=== PATIENT | female | born 1950 | race Caucasian/White ===

== ENCOUNTER → 2017-02-23 | Outpatient (CLI) | payer OTHER | END | disposition home or self-care (01) | LOC: C.LABMFLN 09:10 | PROVIDERS: ATTEND Family Medicine | DX: R30.0 Dysuria (principal); M54.9 Dorsalgia, unspecified; R35.0 Frequency of micturition; R11.0 Nausea ==

== ENCOUNTER → 2017-03-10 | Outpatient (CLI) | payer OTHER ==
[2017-03-10 13:18] LABS: URINE APPEARANCE CLOUDY (CLEAR); URINE BILIRUBIN NEG (NEG); URINE COLOR YELLOW; URINE EPITHELIAL CELL AUTO >30 /lpf (0-5); URINE NITRITE POS (NEG); URINE SPECIFIC GRAVITY 1.011 (1.000-1.030); UROBILINOGEN NEG (NEG)
[2017-03-10 13:39] LABS: MANUAL MICROSCOPIC REQUIRED? NO; REVIEW REQ? NO
== END | disposition home or self-care (01) ==
LOC: C.LABMFLN 08:54
PROVIDERS: ATTEND Family Medicine
DX: R35.0 Frequency of micturition (principal)

== ENCOUNTER → 2017-10-12 | Outpatient (CLI) | payer OTHER ==
[~2017-10-12] MED LIST: AMOX875T PO; CEFD1CAP14 PO; CEFD250S3 PO; ERGO500037 PO; HYDR25TA4 PO; PRED20TA PO; RANI150T3 PO
[2017-10-12 13:05] LABS: BASO % 0.2 %; BASO ABS # 0.01 K/uL (0-0.2); EOS % 3.4 %; EOS ABS # 0.16 K/uL (0-0.5); HEMATOCRIT 40.6 % (37-47); HEMOGLOBIN 13.7 g/dL (12.0-16.0); IG# 0.02 K/uL (0.00-0.02); LYMPH % 24.9 %; LYMPH ABS # 1.16 K/uL (1.2-3.4); MEAN CELL VOLUME 86.6 fL (80-100); MEAN CORPUSCULAR HEMOGLOBIN 29.2 pg (25-34); MEAN CORPUSCULAR HGB CONC 33.7 g/dl (32-36); MEAN PLATELET VOLUME 8.8 fL (7.4-10.4); MONO % 9.7 %; MONO ABS # 0.45 K/uL (0.11-0.59); NEUT % 61.4 %; NEUT ABS # 2.86 K/uL (1.4-6.5); PLATELET COUNT 182 K/uL (130-400); RED CELL DISTRIBUTION WIDTH CV 13.1 % (11.5-14.5); RED CELL DISTRIBUTION WIDTH SD 41.7 fL (36.4-46.3); WHITE BLOOD COUNT 4.66 K/uL (4.8-10.8)
[2017-10-12 13:55] LABS: ALBUMIN 4.1 gm/dl (3.4-5.0); ALT/SGPT 23 U/L (12-78); BLOOD UREA NITROGEN 18 mg/dl (7-18); CALCIUM 9.1 mg/dl (8.5-10.1); CARBON DIOXIDE 29 mmol/L (21-32); CREATININE 1.01 mg/dl (0.60-1.20); GLUCOSE 103 mg/dl (70-99); POTASSIUM 3.3 mmol/L (3.5-5.1); SODIUM 136 mmol/L (136-145)
[2017-10-12 13:58] LABS: ALKALINE PHOSPHATASE 122 U/L (45-117); AST/SGOT 21 U/L (15-37)
== END | disposition home or self-care (01) ==
LOC: C.LABMFLN 10:13
PROVIDERS: ATTEND Physician Assistant
DX: K21.9 Gastro-esophageal reflux disease without esophagitis (principal); F41.9 Anxiety disorder, unspecified; M81.0 Age-related osteoporosis without current pathological fracture; I10 Essential (primary) hypertension; E55.9 Vitamin D deficiency, unspecified

== ENCOUNTER → 2017-10-13 | Outpatient (CLI) | payer OTHER | END | disposition home or self-care (01) | LOC: C.LABMFLN 11:21 | PROVIDERS: ATTEND Family Medicine | DX: R30.0 Dysuria (principal) ==

== ENCOUNTER → 2017-10-27 | Outpatient (CLI) | payer OTHER | END | disposition home or self-care (01) | LOC: C.LABMFLN 09:52 | PROVIDERS: ATTEND Physician Assistant | DX: N39.0 Urinary tract infection, site not specified (principal) ==

== ENCOUNTER → 2017-11-02 | Outpatient (CLI) | payer OTHER ==
--- NOTE | 2017-11-02 14:37 | MAMMOGRAPHY REPORT ---
BILATERAL DIGITAL DIAGNOSTIC MAMMOGRAM TOMOSYNTHESIS WITH CAD AND TARGETED RIGHT ULTRASOUND: 8 CLINICAL HISTORY: 67-year-old woman presents for mammographic evaluation of both breasts, at time of annual exam. Also, her provider recently palpated lumps in the 5:00 and 11:00 axes of the right derek st on physical exam. The patient was unsure of the location of the lumps in order to point them out during today's workup. TECHNIQUE: Bilateral breast tomosynthesis in addition to standard 2D mammography was performed. Curre nt study was also evaluated with a Computer Aided Detection (CAD) system. COMPARISON: Comparison is made to exams dated: 10/22/2016 mammogram, 05/15/2015 mammogram, 04/05/2014 ma mmogram, 12/26/2012 mammogram, and 06/30/2011 mammogram. BREAST COMPOSITION: There are scattered areas of fibroglandular density in both breasts. FINDINGS: There are scattered benign coarse, round and punctate microcalcifications in the breasts, a nd mild vascular calcification. There is an ovoid focal asymmetry measuring 2 cm in the 3:00 middle one third of the left breast, that appears similar on all available prior mammograms dating back to a t least 06/30/2011, therefore likely benign. A circumscribed 10 mm mass in the upper outer anterior right breast is also stable dating back to at least 2010, also likely benign. No new suspicious mass , architectural distortion or cluster of suspicious microcalcifications is seen bilaterally. Targeted ultrasound was performed in the right breast with particular attention to the 5:00 and 11:00 axes, in the areas of palpable concern described by the patient's provider. A morphologically rusty l lymph node is identified in the right axilla. In the 10:00, 11:00 and 12:00 axes as well as 4:00, 5:00 and 6:00 axes of the right breast, sonographically normal tissue is seen without a suspicious so lid or cystic mass. IMPRESSION: ACR BI-RADS CATEGORY 2: BENIGN, TARGETED ULTRASOUND ACR BI-RADS CATEGORY 2: BENIGN 1. Stable bilateral mammograms, without mammographic evidence of malignancy. 2. No new suspicious mammographic or targeted sonographic abnormality with particular attention to t he right breast 5:00 and 11:00 axes in the areas of lumps identified by the patient's provider. Ther efore, clinical follow-up is recommended, as biopsy of a clinically suspicious mass should not be pre cluded by negative imaging. Otherwise, recommend routine screening tomosynthesis mammography in one year. Approximately 10% of breast cancers are not detected with mammography. A negative mammographic report should not delay biopsy if a clinically suggestive mass is present. Sarika Smith M.D. ay/:11/02/2017 12:39:08 Invas Tech: Lzia VILLA(R)(M), [facility] letter sent: Normal 1/2 BI-RADS Code: ACR BI-RADS Category 2: Benign Ultrasound BI-RADS: ACR BI-RADS Category 2: Benign
== END | disposition home or self-care (01) ==
LOC: C.MAMM 10:42
PROVIDERS: ATTEND Physician Assistant
DX: N63.14 Unspecified lump in the right breast, lower inner quadrant (principal); N63.11 Unspecified lump in the right breast, upper outer quadrant

== ENCOUNTER 2017-11-21 08:50 | Emergency (ER) | payer OTHER ==
[~2017-11-21] VITALS: Ht 170.2 cm; Wt 111.2 kg
[2017-11-21 08:57] VITALS: Ht 170.2 cm; Wt 111.2 kg
[2017-11-21] MEDS ORDERED: SODIUM CHLORIDE 0.9% 1000ML 1,000 ML IV STA (09:55)
[2017-11-21] MEDS ORDERED: OPTIRAY 320 IV PRN (10:15)
[2017-11-21 10:22] LABS: BASO % 0.3 %; BASO ABS # 0.01 K/uL (0-0.2); EOS ABS # 0.08 K/uL (0-0.5); HEMATOCRIT 40.8 % (37-47); HEMOGLOBIN 13.6 g/dL (12.0-16.0); IG# 0.01 K/uL (0.00-0.02); LYMPH % 25.6 %; LYMPH ABS # 1.01 K/uL (1.2-3.4); MEAN CORPUSCULAR HGB CONC 33.3 g/dl (32-36); MEAN PLATELET VOLUME 8.6 fL (7.4-10.4); MONO % 9.4 %; MONO ABS # 0.37 K/uL (0.11-0.59); NEUT % 62.4 %; NEUT ABS # 2.47 K/uL (1.4-6.5); PLATELET COUNT 140 K/uL (130-400); RED CELL DISTRIBUTION WIDTH CV 13.2 % (11.5-14.5); RED CELL DISTRIBUTION WIDTH SD 42.2 fL (36.4-46.3); WHITE BLOOD COUNT 3.95 K/uL (4.8-10.8)
[2017-11-21] MEDS ORDERED: HYDR25TA4 PO (10:30)
[2017-11-21] MEDS ORDERED: RANI150T3 PO (10:30)
[2017-11-21] MEDS ORDERED: ERGO500037 PO (10:30)
[2017-11-21 10:38] LABS: ALBUMIN 3.6 gm/dl (3.4-5.0); CALCIUM 9.3 mg/dl (8.5-10.1); CREATININE 0.93 mg/dl (0.60-1.20)
[2017-11-21 10:41] LABS: TOTAL PROTEIN 7.4 gm/dl (6.4-8.2)
--- NOTE | 2017-11-21 11:30 | DIAGNOSTIC IMAGING REPORT ---
ABD/PELVIS IV CONTRAST ONLY CT DOSE: 1192.47 mGy.cm HISTORY: Pain. Nausea. RECURRENT UTIS TECHNIQUE: Multiaxial CT images of the abdomen and pelvis were performed following the use of intravenous contrast. A dose lowering technique was utilized adhering to the principles of ALARA. COMPARISON STUDY: None. FINDINGS: Minimal deep ended basilar atelectasis. Prior cholecystectomy. Liver spleen and pancreas are unremarkable. Bilateral extrarenal pelves with the kidneys enhance uniformly. 8 mm upper pole left renal cyst. Minimal hyperplastic changes adrenal glands. Unremarkable bowel pattern. No evidence for obstructive change. Several scattered diverticuli of the sigmoid colon. No evidence for acute diverticulitis. Total right hip arthroplasty. IMPRESSION: 1. Mild fatty infiltration of liver. 2. Small left renal cyst. 3. Otherwise negative study post cholecystectomy. The above report was generated using voice recognition software. It may contain grammatical, syntax or spelling errors. Electronically signed by: Justus Fletcher M.D. 11/21/2017 11:29 AM Dictated Date/Time: 11/21/2017 11:26 AM
[2017-11-21] MEDS ORDERED: ONDANSETRON INJ 2 MG/ML 2 ML VIAL IV STA (11:33)
[2017-11-21] MEDS ORDERED: MoRPHine SULFATE 4 MG/ML 1 ML CARP\\VIAL IV STA (11:33)
[2017-11-21] MEDS ORDERED: CEFTRIAXONE SOD INJ 1 GM ADDVIAL IV STA (11:43)
[2017-11-21 11:50] VITALS: O2SAT 100
[2017-11-21] MEDS ORDERED: CEFD250S3 PO (13:51)
--- NOTE | 2017-11-21 13:52 | EMERGENCY ROOM VISIT NOTE ---
History First contact with patient: 09:20 Chief Complaint: URINARY SYMPTOMS Stated Complaint: UTI Nursing Triage Summary: Burning/pain with urination, pain in right lower back, burning in lower abdomen , nausea, & urinary frequency. Denies vomiting, diarrhea, hematuria, or constipation. History of Present Illness Patient is a 67-year-old white female who presents to the emergency department for pelvic pain and UTI symptoms. Patient reports that she has had symptoms for the last couple days. She reports that this would be her third urinary tract infection since beginning of this year. She was seen by her primary care provider twice, and was on 2 different courses of Macrobid in October, she has been off antibiotics for at least a week. She reports she took the antibiotics as prescribed. She reports only short-term relief while on the antibiotics and after being off of them for a few days her symptoms returned. Patient reports feeling heaviness in her bladder, lower pelvic burning, urinary frequency, decreased urinary output. She denies any burning with urination or dysuria. She does feel like she can empty her bladder completely. She has begun to experience some pain that is wrapping around to her back. She has not had any fevers. She is postmenopausal, denies any vaginal discharge or vaginal bleeding. She has been nauseous and anorexic, but denies vomiting. Patient denies a prior history frequent UTIs prior to this. Bowel movements have been normal. She denies any diarrhea or constipation. She presently rates her discomfort a 5/10. Review of Systems Review of systems as per HPI. All other systems reviewed were negative. 10 systems reviewed. Past Medical/Surgical History Medical Problems: (1) Anxiety Disorder, Unspecified (2) Essential (Primary) Hypertension (3) Gastro-Esophageal Reflux Disease Without Esophagitis (4) Vitamin D Deficiency, Unspecified Surgical Problems: (1) History of cholecystectomy (2) History of total hip replacement Electronic medical records are reviewed and summarized as above/below. See Problem List. Social History Smoking Status: Never Smoker Alcohol Use: none Marital Status: Housing Status: lives with significant other Occupation Status: retired Current/Historical Medications Scheduled Cefdinir (Omnicef), 6 ML PO BID Ergocalciferol (Vitamin D 75411 Unit), 50,000 UNIT PO Q2WK Hydrochlorothiazide (Hctz), 25 MG PO DAILY Ranitidine Hcl (Zantac), 150 MG PO BID Physical Exam Vital Signs Date Time Temp Pulse Resp B/P (MAP) Pulse Ox O2 Delivery O2 Flow Rate FiO2 11/21/17 14:46 37.2 76 16 131/74 100 11/21/17 13:35 65 20 112/70 95 Room Air 11/21/17 12:12 68 18 126/74 100 Room Air 11/21/17 12:05 58 11/21/17 11:50 100 Room Air 11/21/17 11:40 72 20 150/76 99 Room Air 11/21/17 10:36 74 18 159/96 99 Room Air 11/21/17 08:57 36.8 100 18 161/85 100 Room Air Physical Exam CONSTITUTIONAL: Patient is a well appearing, occasionally tearful and slightly anxious 67-year-old white female who is awake and alert and in no acute distress. EYES: Pupils equal, round, reactive to light and accommodation. EOMs intact without nystagmus. Sclera are anicteric. ENT: Tympanic membranes intact, with normal landmarks. External canals are clear. Oral and nasopharynx are clear. Mucous membranes are moist, no lesions , tongue and gums appear normal. CARDIOVASCULAR: Regular rate and rhythm, with normal S1 and S2, no murmur or gallop or rub is heard. No carotid bruits auscultated. No JVD. Peripheral pulses easily palpable. RESPIRATORY: Breath sounds equal and clear to auscultation without wheezes, rales, or rhonchi heard. Full and equal chest expansion without accessory muscle use or retractions. ABDOMEN: Bowel sounds are present. Well-healed surgical scars are noted. Abdomen is soft, mildly tender throughout the lower abdomen, without guarding, rebound or rigidity. No organomegaly, no pulsatile masses. INTEGUMENTARY: No lesions or rash, normal skin turgor. LYMPH: No lymphadenopathy. Medical Decision & Procedures ER Provider Diagnostic Interpretation: ABD/PELVIS IV CONTRAST ONLY CT DOSE: 1192.47 mGy.cm HISTORY: Pain. Nausea. RECURRENT UTIS TECHNIQUE: Multiaxial CT images of the abdomen and pelvis were performed following the use of intravenous contrast. A dose lowering technique was utilized adhering to the principles of ALARA. COMPARISON STUDY: None. FINDINGS: Minimal deep ended basilar atelectasis. Prior cholecystectomy. Liver spleen and pancreas are unremarkable. Bilateral extrarenal pelves with the kidneys enhance uniformly. 8 mm upper pole left renal cyst. Minimal hyperplastic changes adrenal glands. Unremarkable bowel pattern. No evidence for obstructive change. Several scattered diverticuli of the sigmoid colon. No evidence for acute diverticulitis. Total right hip arthroplasty. IMPRESSION: 1. Mild fatty infiltration of liver. 2. Small left renal cyst. 3. Otherwise negative study post cholecystectomy. Laboratory Results 11/21/17 10:05 Red Blood Count 4.69, Mean Corpuscular Volume 87.0, Mean Corpuscular Hemoglobin 29.0, Mean Corpuscular Hemoglobin Concent 33.3, Mean Platelet Volume 8.6, Neutrophils (%) (Auto) 62.4, Lymphocytes (%) (Auto) 25.6, Monocytes (%) (Auto) 9.4, Eosinophils (%) (Auto) 2.0, Basophils (%) (Auto) 0.3, Neutrophils # (Auto) 2.47, Lymphocytes # (Auto) 1.01, Monocytes # (Auto) 0.37, Eosinophils # (Auto) 0.08, Basophils # (Auto) 0.01 11/21/17 10:05 Test 11/21/17 09:13 11/21/17 10:05 Urine Color YELLOW Urine Appearance CLOUDY (CLEAR) Urine pH 8.0 (4.5-7.5) Urine Specific [place] 1.010 (1.000-1.030) Urine Protein NEG (NEG) Urine Glucose (UA) NEG (NEG) Urine Ketones NEG (NEG) Urine Occult Blood TRACE (NEG) Urine Nitrite POS (NEG) Urine Bilirubin NEG (NEG) Urine Urobilinogen NEG (NEG) Urine Leukocyte Esterase MODERATE (NEG) Urine RBC 0-4 /hpf (0-4) Urine WBC >30 /hpf (0-5) Urine Epithelial Cells >30 /lpf (0-5) Urine Bacteria 4+ (NEG) White Blood Count 3.95 K/uL (4.8-10.8) Red Blood Count 4.69 M/uL (4.2-5.4) Hemoglobin 13.6 g/dL (12.0-16.0) Hematocrit 40.8 % (37-47) Mean Corpuscular Volume 87.0 fL (80-100) Mean Corpuscular Hemoglobin 29.0 pg (25-34) Mean Corpuscular Hemoglobin Concent 33.3 g/dl (32-36) Platelet Count 140 K/uL (130-400) Mean Platelet Volume 8.6 fL (7.4-10.4) Neutrophils (%) (Auto) 62.4 % Lymphocytes (%) (Auto) 25.6 % Monocytes (%) (Auto) 9.4 % Eosinophils (%) (Auto) 2.0 % Basophils (%) (Auto) 0.3 % Neutrophils # (Auto) 2.47 K/uL (1.4-6.5) Lymphocytes # (Auto) 1.01 K/uL (1.2-3.4) Monocytes # (Auto) 0.37 K/uL (0.11-0.59) Eosinophils # (Auto) 0.08 K/uL (0-0.5) Basophils # (Auto) 0.01 K/uL (0-0.2) RDW Standard Deviation 42.2 fL (36.4-46.3) RDW Coefficient of Variation 13.2 % (11.5-14.5) Immature Granulocyte % (Auto) 0.3 % Immature Granulocyte # (Auto) 0.01 K/uL (0.00-0.02) Anion Gap 7.0 mmol/L (3-11) Est Creatinine Clear Calc Drug Dose 75.5 ml/min Estimated GFR () 73.7 Estimated GFR (Non- 63.6 BUN/Creatinine Ratio 9.1 (10-20) Calcium Level 9.3 mg/dl (8.5-10.1) Total Bilirubin 0.5 mg/dl (0.2-1) Aspartate Amino Transf (AST/SGOT) 12 U/L (15-37) Alanine Aminotransferase (ALT/SGPT) 17 U/L (12-78) Alkaline Phosphatase 97 U/L (45-117) Total Protein 7.4 gm/dl (6.4-8.2) Albumin 3.6 gm/dl (3.4-5.0) Globulin 3.8 gm/dl (2.5-4.0) Albumin/Globulin Ratio 1.0 (0.9-2) Medications Administered Medications (Trade) Dose Ordered Sig/Issa Route Start Time Stop Time Status Last Admin Dose Admin Sodium Chloride 1,000 ml @ 999 mls/hr Q1H1M STAT IV 11/21/17 09:55 11/21/17 10:55 DC 11/21/17 10:14 999 MLS/HR Morphine Sulfate (MoRPHine SULFATE INJ) 4 mg NOW STAT IV 11/21/17 11:33 11/21/17 11:35 DC 11/21/17 11:40 4 MG Ondansetron HCl (Zofran Inj) 4 mg NOW STAT IV 11/21/17 11:33 11/21/17 11:35 DC 11/21/17 11:39 4 MG Ceftriaxone Sodium (Rocephin Inj) 1 gm NOW STAT IV 11/21/17 11:43 11/21/17 11:45 DC 11/21/17 11:53 1 GM ED Course The patient was seen and evaluated as above. Her old records were reviewed, including her 2 prior urine cultures from October 13 which grew a hand sensitive Klebsiella pneumoniae and an Escherichia coli resistant only to ampicillin and ampicillin/sulbactam. Second urine culture from 10/27 again grew a pansensitive Klebsiella. She presents the emergency department for ongoing urinary tract symptoms, now with associated lower abdominal and back pain. IV lock initiated. Laboratory studies including CBC and CMP were collected. Urinalysis and urine microscopy were also performed. She was hydrated with a liter of normal saline solution over 1 hour. She initially declined medication for discomfort. Given her persistent UTI symptoms, CT scan of the abdomen and pelvis with IV contrast was ordered. Laboratory studies noted a white count of 3900, no left shift or bandemia. Electrolytes are within normal limits. Renal functions are elevated. Creatinine clearance is normal. LFTs are unremarkable. Urine microscopy today notes trace occult blood, positive nitrates, moderate leukocyte esterase greater than 30 WBCs and epithelial cells with 4+ bacteria. Urine culture is pending. CT scan of the abdomen and pelvis with IV contrast was essentially unremarkable. Postsurgical changes consistent with cholecystectomy were noted. There is mild fatty infiltration of the liver and a small left renal cyst, bilateral extrarenal pelves with the kidneys enhance uniformly. The patient did request something for discomfort when she returned from scan and was given morphine 4 mg and Zofran 4 mg IV. All laboratory and diagnostic imaging studies were reviewed with attending physician, who also independently evaluated the patient. Workup was also reviewed with the patient and her at length. She has several antibiotic allergies/intolerances, she appears to have a questionable intolerance to cephalosporins, and after discussion with Dr. Mccain, we have elected to proceed with IV ceftriaxone to cover for her persistent urinary tract infection. She was monitored on the court monitor and observed closely while given 1 g of ceftriaxone IV, without adverse reaction. Prolonged monitoring after IV antibiotics did not demonstrate any allergic reaction. The patient will be placed on Omnicef, pending urine culture. After discussion with the patient, she would like to try the antibiotic in a liquid form to avoid any difficulty swallowing which she has had with some pills in the past. Differential diagnoses entertained included persistent/recurrent UTI, pyelonephritis, kidney stone, mass or malignancy, obstructive uropathy, among others. The patient was discharged home with her in good condition. She was encouraged to follow closely with her primary care provider this week for recheck, particularly after the urine culture results. The patient felt much improved and reassured at discharge, rated her discomfort a 1/10 at that time. Vital signs were stable. Medical Decision See Emergency Department course. [place] Drug Monitoring Program Search Results: patient reviewed within database Medication Reconcilliation Current Medication List: was personally reviewed by ms Blood Pressure Screening Patient's blood pressure: Normal blood pressure Blood pressure disposition: Did not require urgent referral Impression Primary Impression: Complicated urinary tract infection Departure Information Prescriptions Cefdinir (OMNICEF) 250 Mg/5 Ml Ailyn 6 ML PO BID for 10 Days, #120 ML Prov: Elena Cee PA 11/21/17 Referrals Sherrell Lindquist (PCP) Patient Instructions My [facility] Additional Instructions Cefdinir (Omnicef) 250mg/5mL : Take 6 mL twice daily for 10 days for your urine infection. All antibiotics can cause diarrhea. If this occurs and you feel worse or it does not resolve in 1-2 days follow up with your doctor or return to the Emergency Department as this could be signs of serious underlying problems. Any medication can cause an allergic reaction, stop the pills immediately and return to the ER for rash, hives, breathing difficulties, or swelling. Ibuprofen(Motrin, Advil) may be used for fever or pain. Use 600mg every six hours as needed. Take with food. Avoid using more than 2400mg in a 24 hour period. Do not use 2400mg per day for more than three consecutive days without physician direction. Prolonged inappropriate use can lead to stomach upset or ulcers. This is available over the counter and typically comes in 200mg tablets. (AND/OR) Acetaminophen(Tylenol) may be used for fever or pain. Use 1000mg every eight hours as needed. Avoid using more than 3000mg in a 24 hour period. This is available over the counter. Read all the package inserts or medication information paperwork provided. If you have any questions or concerns call your primary provider, pharmacist or the ER for assistance. Rest and drink plenty of fluids. Continue current medications. Return to the ER immediately for worsening or persistent abdominal pain, vomiting, fevers, back or flank pain, worsening of your condition, or as needed. Follow up with your primary physician within 2-3 days for a recheck of the current condition.
[2017-11-21 14:46] VITALS: BP 131/74; PULSE 76; TEMP 37.2; O2SAT 100
--- NOTE | 2017-11-21 16:13 | EMERGENCY ROOM VISIT NOTE ---
ED Visit Note First contact with patient: 09:20 I have personally seen and evaluated the patient with the PA. I agree with the diagnosis and management decisions and have been personally involved in the case. Please see Monique Cee PA-C's notes for further details of the history , physical and visit.
--- NOTE | 2017-11-23 12:02 | Pharmacy Progress Note ---
ED Pharmacist Progress Note Date of Service: Nov 23, 2017. Patient was sent home with a prescription for Cefdinir suspension 300mg PO BID x 10 days for complicated UTI, which should cover the klebsiella pn growing from the patient's URINE culture.
== END 2017-11-21 14:45 | disposition home or self-care (01) ==
LOC: C.EDB 08:51 → C.EDA 14:45
DX: N39.0 Urinary tract infection, site not specified (principal); I10 Essential (primary) hypertension; K21.9 Gastro-esophageal reflux disease without esophagitis; E55.9 Vitamin D deficiency, unspecified; Z88.1 Allergy status to other antibiotic agents

== ENCOUNTER 2017-12-15 08:43 | Emergency (ER) | payer OTHER ==
[~2017-12-15] VITALS: Ht 170.2 cm; Wt 110.9 kg
[~2017-12-15 08:43] MED LIST changes: -AMOX875T PO; -CEFD1CAP14 PO; -CEFD250S3 PO; -PRED20TA PO
[2017-12-15 08:45] VITALS: Ht 170.2 cm; Wt 110.9 kg
[2017-12-15 08:56] VITALS: TEMP 36.8
[2017-12-15] MEDS ORDERED: CEFDINIR 300 MG CAP PO STA (09:18)
[2017-12-15] MEDS ORDERED: CEFD1CAP14 PO (09:29)
--- NOTE | 2017-12-15 09:30 | EMERGENCY ROOM VISIT NOTE ---
History Report prepared by Jaden: Valentine Regan Under the Supervision of: Dr. Jose Alfredo Tabor D.O. First contact with patient: 08:57 Chief Complaint: URINARY SYMPTOMS Stated Complaint: UTI BURNING, PAIN Nursing Triage Summary: uti symptoms started 2 days ago History of Present Illness The patient is a 67 year old female who presents to the Emergency Room with complaints of worsening urinary symptoms for the past 2 days. She reports dysuria and describes burning pain with urination. She is also experiencing bladder spasms and increased urinary frequency. She denies fevers, chills, nausea, vomiting, and flank pain. The patient states that she has been having frequent, recurrent UTIs for the past 8 months. She has been following up with her PCP and has been taking antibiotics. She has not followed up with urology. The patient rates her current pain as a 4/10 in severity. 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 Review of Systems See HPI for pertinent positives & negatives. A total of 10 systems reviewed and were otherwise negative. Past Medical & Surgical Medical Problems: (1) Anxiety Disorder, Unspecified (2) Essential (Primary) Hypertension (3) Gastro-Esophageal Reflux Disease Without Esophagitis (4) Vitamin D Deficiency, Unspecified Surgical Problems: (1) History of cholecystectomy (2) History of total hip replacement Family History Hypertension Social History Smoking Status: Never Smoker Alcohol Use: none Marital Status: Housing Status: lives with significant other Occupation Status: retired Current/Historical Medications Scheduled Cefdinir (Omnicef), 300 MG PO Q12H Hydrochlorothiazide (Hctz), 25 MG PO DAILY Ranitidine Hcl (Zantac), 150 MG PO BID Allergies Coded Allergies: Cefprozil (Verified Allergy, Unknown, flushing of face,itchy palms, 12/15/17 ) Ciprofloxacin (Verified Allergy, Unknown, ? palpitations, 12/15/17) Sulfa Antibiotics (Verified Allergy, Unknown, angioedema, 12/15/17) Physical Exam Vital Signs Date Time Temp Pulse Resp B/P (MAP) Pulse Ox O2 Delivery O2 Flow Rate FiO2 12/15/17 08:56 36.8 94 18 163/105 98 Room Air 12/15/17 08:45 Room Air Physical Exam CONSTITUTIONAL/VITAL SIGNS: Reviewed / noted above. GENERAL: Non-toxic in appearance. INTEGUMENTARY: Warm, dry, and [place]. HEAD: Normocephalic. EYES: without scleral icterus or trauma. ENT/OROPHARYNX: clear and moist. LYMPHADENOPATHY/NECK: Is supple without lymphadenopathy or meningismus. RESPIRATORY: Lungs clear and equal. CARDIOVASCULAR: Regular rate and rhythm. GI/ABDOMEN: Soft and nontender. No organomegaly or pulsatile mass. No rebound or guarding. Normal bowel sounds. EXTREMITIES: Warm and well perfused. BACK: No CVA tenderness. NEUROLOGICAL: Intact without focal deficits. PSYCHIATRIC: normal affect. MUSCULOSKELETAL: Normally developed with good muscle tone. Medical Decision & Procedures Laboratory Results Test 12/15/17 08:55 Urine Color YELLOW Urine Appearance CLOUDY (CLEAR) Urine pH 7.0 (4.5-7.5) Urine Specific [place] 1.012 (1.000-1.030) Urine Protein NEG (NEG) Urine Glucose (UA) NEG (NEG) Urine Ketones NEG (NEG) Urine Occult Blood TRACE (NEG) Urine Nitrite POS (NEG) Urine Bilirubin NEG (NEG) Urine Urobilinogen NEG (NEG) Urine Leukocyte Esterase TRACE (NEG) Urine WBC (Auto) 1-5 /hpf (0-5) Urine RBC (Auto) 0-4 /hpf (0-4) Urine Hyaline Casts (Auto) 1-5 /lpf (0-5) Urine Epithelial Cells (Auto) >30 /lpf (0-5) Urine Bacteria (Auto) 4+ (NEG) Laboratory results as stated above per my review. Medications Administered Medications (Trade) Dose Ordered Sig/Issa Route Start Time Stop Time Status Last Admin Dose Admin Cefdinir (Omnicef Cap) 300 mg ONE STAT PO 12/15/17 09:18 12/15/17 09:19 DC 12/15/17 09:46 300 MG ED Course 0857: Previous medical records were reviewed. The patient was evaluated in room B9. A complete history and physical examination was performed. At this time I discussed the results and treatment plan with the patient. I answered all pertaining questions that she had. She expressed understanding and verbalized agreement. The patient will be discharged home. 0918: Cefdinir 300 mg PO Medical Decision Differential considered: UTI, kidney stone, cystitis. This is a 67-year-old female who presents to the ED with a chief complaint of urinary symptoms. She reports primarily a burning sensation and a slight spasm in her bladder area occasionally. She reports a bladder infection that felt similar month ago. I did review the results of the cultures. It was sensitive to everything at that time. The patient did provide a urine sample today, it reveals findings suggestive of UTI. Culture has been sent. The patient denies any flank pain, nausea, vomiting or fevers. She will be discharged on Omnicef. The patient is to follow-up with urology for further evaluation. She reports recurrent issues with UTIs. Medication Reconcilliation Current Medication List: was personally reviewed by me Blood Pressure Screening Patient's blood pressure: Elevated blood pressure Blood pressure disposition: Referred to PCP Impression Primary Impression: Urinary tract infection Scribe Attestation The scribe's documentation has been prepared under my direction and personally reviewed by me in its entirety. I confirm that the note above accurately reflects all work, treatment, procedures, and medical decision making performed by me. Departure Information Dispostion Home / Self-Care Prescriptions Cefdinir (Omnicef) 300 Mg Cap 300 MG PO Q12H for 7 Days, #14 CAP Prov: Jose Alfredo Tabor D.O. 12/15/17 Referrals Sherrell Lindquist (PCP) Sherrell Estevez MD Patient Instructions My [facility] Additional Instructions Omnicef as prescribed for UTI. Culture should be available in 2 days. He will be contacted if the culture is not sensitive to Omnicef. Follow-up with Dr. Estevez from urology. Call today for an appointment.
[2017-12-15 10:03] VITALS: BP 159/92; PULSE 92; O2SAT 99
[2017-12-15] MEDS ORDERED: PRED20TA PO (12:49)
[2017-12-15] MEDS ORDERED: AMOX875T PO (12:49)
--- NOTE | 2017-12-17 13:39 | Pharmacy Progress Note ---
ED Pharmacist Culture FollowUp Date of Service: Dec 17, 2017. Patient was sent home with a prescription for omnicef 300mg BID X 7 days, which should cover the klebsiella pneumoniae growing from the patient's urine culture.
== END 2017-12-15 10:04 | disposition home or self-care (01) ==
LOC: C.EDB 08:44
DX: N39.0 Urinary tract infection, site not specified (principal); I10 Essential (primary) hypertension; K21.9 Gastro-esophageal reflux disease without esophagitis; Z90.49 Acquired absence of other specified parts of digestive tract; Z96.649 Presence of unspecified artificial hip joint; Z86.59 Personal history of other mental and behavioral disorders; Z82.49 Family history of ischemic heart disease and other diseases of the circulatory system; Z88.1 Allergy status to other antibiotic agents; Z88.2 Allergy status to sulfonamides

== ENCOUNTER 2017-12-15 10:28 | Emergency (ER) | payer OTHER ==
[~2017-12-15 10:28] MED LIST changes: +CEFD1CAP14 PO
[2017-12-15] MEDS ORDERED: DiphenhydrAMINE HCL 50 MG/ML VIAL IV STA (10:36)
[2017-12-15] MEDS ORDERED: RANITIDINE HCL 50 MG/100 ML D5W IV STA (10:36)
[2017-12-15] MEDS ORDERED: METHYLPREDNISOLONE 125 MG VIAL IV STA (10:36)
[2017-12-15] MEDS ORDERED: AMPICILLIN/SULBACTAM SOD INJ 3,000 MG in SODIUM CHLORIDE 0.9% 100ML 100 ML IV STA (10:43)
[2017-12-15] MEDS ORDERED: AMOX875T PO (12:49)
[2017-12-15] MEDS ORDERED: PRED20TA PO (12:49)
--- NOTE | 2017-12-15 12:49 | EMERGENCY ROOM VISIT NOTE ---
History Report prepared by Jaden: Valentine Regan Under the Supervision of: Dr. Jose Alfredo Tabor D.O. First contact with patient: 10:35 Chief Complaint: ALLERGIC REACTION Stated Complaint: ALLERGIC REACTION Nursing Triage Summary: patient was just treated in the emergency room a few mins ago was given antibiotics for uti. on her way home she started to get itchy and red. tongue is bright red in color. patient feels short of breath. patient taken immediately to room b06 dr prater aware. 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 The patient was seen in the ED earlier this morning for urinary symptoms. She was diagnosed with a UTI. She had been prescribed Omnicef for her previous UTI and was able to finish the course without any issues. The patient was prescribed Omnicef for her UTI earlier today. She was given the first dose of the medication in the ED and then discharged. She states about 20 minutes later she started to have a reaction to the medication. The patient developed a diffuse red rash over her body and states that she feels very itchy. She reports some shortness of breath. 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 A total of 10 systems reviewed and were otherwise negative. Past Medical & Surgical Medical Problems: (1) Anxiety Disorder, Unspecified (2) Essential (Primary) Hypertension (3) Gastro-Esophageal Reflux Disease Without Esophagitis (4) Vitamin D Deficiency, Unspecified Surgical Problems: (1) History of cholecystectomy (2) History of total hip replacement Family History Hypertension Social History Smoking Status: Never Smoker Alcohol Use: none Marital Status: Housing Status: lives with significant other Occupation Status: retired Current/Historical Medications Scheduled Amoxicillin & Pot Clavulanate (Augmentin 875-125 mg), 875 MG PO BID Cefdinir (Omnicef), 300 MG PO Q12H Hydrochlorothiazide (Hctz), 25 MG PO DAILY Prednisone (Prednisone), 2 TAB PO DAILY Ranitidine Hcl (Zantac), 150 MG PO BID Allergies Coded Allergies: Cefprozil (Verified Allergy, Unknown, flushing of face,itchy palms, 12/15/17 ) Ciprofloxacin (Verified Allergy, Unknown, ? palpitations, 12/15/17) Sulfa Antibiotics (Verified Allergy, Unknown, angioedema, 12/15/17) Physical Exam Vital Signs Date Time Temp Pulse Resp B/P (MAP) Pulse Ox O2 Delivery O2 Flow Rate FiO2 12/15/17 11:15 68 16 131/73 99 Room Air 12/15/17 10:58 88 12/15/17 10:56 95 18 147/86 99 Room Air 12/15/17 10:37 Room Air 12/15/17 10:32 134 18 114/76 97 Room Air Physical Exam CONSTITUTIONAL/VITAL SIGNS: Reviewed / noted above. GENERAL: Non-toxic in appearance. INTEGUMENTARY: Diffuse erythema of the skin with pruritus. HEAD: Normocephalic. EYES: without scleral icterus or trauma. ENT/OROPHARYNX: clear and moist. LYMPHADENOPATHY/NECK: Is supple without lymphadenopathy or meningismus. RESPIRATORY: Lungs clear and equal. CARDIOVASCULAR: Regular rate and rhythm. GI/ABDOMEN: Soft and nontender. No organomegaly or pulsatile mass. No rebound or guarding. Normal bowel sounds. EXTREMITIES: Warm and well perfused. BACK: No CVA tenderness. NEUROLOGICAL: Intact without focal deficits. PSYCHIATRIC: normal affect. MUSCULOSKELETAL: Normally developed with good muscle tone. Medical Decision & Procedures Medications Administered Medications (Trade) Dose Ordered Sig/Issa Route Start Time Stop Time Status Last Admin Dose Admin Ranitidine HCl (zANTac IV) 50 mg NOW STAT IV 12/15/17 10:36 12/15/17 10:38 DC 12/15/17 10:50 50 MG Methylprednisolone Sodium Succinate (Solu-Medrol IV) 125 mg NOW STAT IV 12/15/17 10:36 12/15/17 10:38 DC 12/15/17 10:50 125 MG Diphenhydramine HCl (Benadryl Inj) 25 mg NOW STAT IV 12/15/17 10:36 12/15/17 10:38 DC 12/15/17 10:51 25 MG Ampicillin Sodium/ Sulbactam Sodium 3000 mg/Sodium Chloride 108 ml @ 200 mls/hr NOW STAT IV 12/15/17 10:43 12/15/17 11:15 DC 12/15/17 11:24 200 MLS/HR ED Course 1035: Previous medical records were reviewed. The patient was evaluated in room B6. A complete history and physical examination was performed. 1036: Benadryl 25 mg IV, Solu-Medrol 125 mg IV, Zantac 50 mg IV 1043: Ampicillin Sodium/Sulbactam Sodium 3000 mg /Sodium Chloride 108 ml @ 200 mls/hr IV 1250: I reassessed the patient at this time. She is feeling better and resting comfortably. I discussed the results and treatment plan with the patient. I answered all pertaining questions that she had. She expressed understanding and verbalized agreement. The patient will be discharged home. Medical Decision Differential diagnosis: Etiologies such as allergic reaction, anaphylaxis, urticaria, Espinoza-Sebastian syndrome, toxic epidermal necrolysis, erythema multiforme, cellulitis, as well as others were entertained. This is a 67-year-old female who presents to the ED with chief complaint of allergic reaction. The patient was seen here about 1 hour ago. She was treated with Omnicef for a UTI. She has had this once before in November without any issues. The patient developed redness of her skin and itchiness about 20-30 minutes after she was discharged. She came back for evaluation. She denies any shortness of breath. Her exam revealed the skin changes but nothing to suggest any pulmonary mucous membrane changes. Her vital signs are stable. She was treated with IV Benadryl, IV Solu-Medrol as well as IV Zantac. She was given IV Unasyn for her UTI. The patient will be discharged on Augmentin. She states that she has had this in the past without problem. Prescription for prednisone also sent. Medication Reconcilliation Current Medication List: was personally reviewed by me Blood Pressure Screening Patient's blood pressure: Normal blood pressure Impression Primary Impression: Allergic reaction Scribe Attestation The scribe's documentation has been prepared under my direction and personally reviewed by me in its entirety. I confirm that the note above accurately reflects all work, treatment, procedures, and medical decision making performed by me. Departure Information Dispostion Home / Self-Care Prescriptions Prednisone (Prednisone) 20 Mg Tab 2 TAB PO DAILY for 4 Days, #8 TAB Prov: Jose Alfredo Tabor D.O. 12/15/17 Amoxicillin & Pot Clavulanate (Augmentin 875-125 mg) 1 Tab Tab 875 MG PO BID, #14 TAB Prov: Jose Alfredo Tabor D.O. 12/15/17 Referrals Linda Clark M.D. (PCP) Patient Instructions My [facility] Additional Instructions Augmentin as prescribed. Prednisone as prescribed. Take Benadryl 25 mg every 6 hours for the next several days. Follow-up with the urologist as per prior instructions. Follow-up with your doctor for further care and evaluation in 1-2 days. Return to the emergency department for worsening or new symptoms or any concerns. You have been examined and treated today on an emergency basis only. This is not a substitute for, or an effort to provide, complete comprehensive medical care. It is impossible to recognize and treat all injuries or illnesses in a single emergency department visit. It is therefore important that you follow up closely with your doctor. Call as soon as possible for an appointment.
[2017-12-15 14:07] VITALS: BP 143/73; PULSE 86; O2SAT 96
--- NOTE | 2017-12-17 15:08 | Pharmacy Progress Note ---
ED Pharmacist Culture FollowUp Date of Service: Dec 17, 2017. Patient was sent home with a prescription for augmentin, which should cover the klebsiella pneumoniae growing from the patient's urine culture. I did call the patient to inform her of results and assess her status as she had a reaction to the first antibiotic prescribed, cefdinir. The patient reported no difficulties and she was tolerating the augmentin well.
== END 2017-12-15 14:10 | disposition home or self-care (01) ==
LOC: C.EDB 10:29
DX: T78.40XA Allergy, unspecified, initial encounter (principal); X58.XXXA Exposure to other specified factors, initial encounter; F41.9 Anxiety disorder, unspecified; I10 Essential (primary) hypertension; K21.9 Gastro-esophageal reflux disease without esophagitis; E55.9 Vitamin D deficiency, unspecified; Z82.49 Family history of ischemic heart disease and other diseases of the circulatory system; Z79.899 Other long term (current) drug therapy; Z88.1 Allergy status to other antibiotic agents; Z88.2 Allergy status to sulfonamides

== ENCOUNTER → 2018-01-03 | Outpatient (CLI) | payer OTHER ==
[~2018-01-03] MED LIST changes: -CEFD1CAP14 PO; -ERGO500037 PO
== END | disposition home or self-care (01) ==
LOC: C.LABSPEC 16:52 → C.PATHSPEC 16:53
PROVIDERS: ATTEND Urology
DX: R30.0 Dysuria (principal); R31.29 Other microscopic hematuria

== ENCOUNTER → 2018-04-29 | Outpatient (CLI) | payer OTHER | END | disposition home or self-care (01) | LOC: C.LABMFLN 08:09 | PROVIDERS: ATTEND Nurse Practitioner Adult Health | DX: N39.0 Urinary tract infection, site not specified (principal) ==